=== PATIENT | female | born 1985 | race African-American/Black ===

== ENCOUNTER → 2018-06-17 | Outpatient (CLI) | payer OTHER ==
--- NOTE | 2018-06-17 16:45 | RAD ---
PQRS Compliance statement: One or more of the following individualized dose reduction techniques were utilized for this examination: 1. Automated exposure control. 2. Adjustment of the mA and/or kV according to patient size. 3. Use of iterative reconstruction technique. INDICATION: Right knee pain. Contusion. TECHNIQUE: CT of the right knee without IV contrast with multiplanar reformats. COMPARISON: None FINDINGS: No acute fracture. Lateral subluxation of the patella is seen at the patellofemoral joint. No large joint effusion. The quadriceps tendon and patellar tendon are intact. The popliteal fossae is within normal limits. Trace amount of fluid is seen in the lateral aspect of the knee joint. IMPRESSION: Lateral subluxation of the patella. Partial tear of the medial patellar retinaculum is a possibility. Electronically signed by: Bowen Stern DO (06/17/2018 4:43 PM) [facility]
== END | disposition home or self-care (01) ==
LOC: CT 15:47
PROVIDERS: ATTEND Preventive Medicine Occupational Medicine
DX: S83.011A Lateral subluxation of right patella, initial encounter (principal); X58.XXXA Exposure to other specified factors, initial encounter; Y93.89 Activity, other specified; Y92.89 Other specified places as the place of occurrence of the external cause; Y99.8 Other external cause status
CPT/HCPCS: 73700